=== PATIENT | male | born 1975 | race Caucasian/White ===

== ENCOUNTER 2020-01-30 09:30 | Inpatient (IN) ==
[2020-01-30] MEDS ORDERED: POLYETHYLENE GLYCOL 3350 17 GM PACKET PO PRN (10:16)
[2020-01-30] MEDS ORDERED: BISACODYL 10 MG SUPP.RECT PR PRN (10:16)
[2020-01-30] MEDS ORDERED: POTASSIUM CHLORIDE 20 MEQ PACKET PO PRN (10:16)
[2020-01-30] MEDS ORDERED: ACETAMINOPHEN 650 MG/65 ML BOTTLE IV PRN (10:16)
[2020-01-30] MEDS ORDERED: hydrALAZINE 20 MG/ML VIAL IV PRN (10:16)
[2020-01-30] MEDS ORDERED: METOPROLOL TARTRATE 5 MG/5 ML VIAL IV PRN (10:16)
[2020-01-30] MEDS ORDERED: ONDANSETRON 4 MG ODT TABLET SL PRN (10:16)
[2020-01-30] MEDS ORDERED: MAGNESIUM SULFATE 2 GM/50 ML BAG IV PRN (10:16)
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
[2020-01-30] MEDS: 0.9 % SODIUM CHLORIDE 1,000 ML IV SCH ×2 (11:19→21:27)
[2020-01-30] MEDS: NICOTINE 21 MG PATCH TOPICAL SCH (11:20)
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
[2020-01-30] MEDS: DIAZEPAM 10 MG TABLET PO PRN ×8 (12:47→21:16)
[2020-01-30] MEDS ORDERED: GABAPENTIN 300 MG CAPSULE PO SCH (14:00)
[2020-01-30] MEDS: 0.9 % SODIUM CHLORIDE 10 ML SYRINGE IV SCH ×2 (15:38→22:15)
[2020-01-30 16:39] LABS: Hematocrit 41.5 % (40.1-51.0); Hemoglobin 14.3 g/dL (13.7-17.5); Mean Cell Volume 96.5 fL (80.0-100.0); Mean Corpuscular HGB Conc 34.5 g/dL (31.0-36.0); Mean Platelet Volume 10.4 fL (7.4-10.4); Red Cell Distribution Width 12.1 % (11.5-14.5); WBC 3.9 K/mcL (4.50-11.00)
[2020-01-30 16:43] LABS: Platelet Count 132 K/mcL (140-440)
[2020-01-30 16:55] LABS: ALT/SGPT 79 U/l (0-40); AST/SGOT 62 U/l (0-37); Albumin 4.1 gm/dL (3.2-5.2); Albumin/Globulin Ratio 1.6 (1.0-2.3); Alkaline Phosphatase 66 U/L (39-117); Bilirubin,Direct < 0.2 mg/dL (0.0-0.3); Bilirubin,Total 0.4 mg/dL (0.0-1.0); Blood Urea Nitrogen 10 mg/dl (6-20); Calcium 8.6 mg/dl (8.6-10.4); Carbon Dioxide 22 mmol/L (22-30); Chloride 100 mmol/L (96-108); Globulin 2.5 gm/dL (2.2-3.7); Glomerular Filtration Rate 114; Glucose 110 mg/dL (70-105); Lactate Dehydrogenase 163 U/L (94-250); Triglycerides 96 mg/dl (<150); Uric Acid 4.5 mg/dL (2.5-8.0)
[2020-01-30 16:57] LABS: Phosphorous 2.2 mg/dL (2.7-4.5)
[2020-01-30 17:21] LABS: Band Neutrophils % 1 % (0-10); Basophils % (Manual) 3 % (0-2); Eosinophils % (Manual) 6 % (0-7); Lymphocytes % 33 % (15-49); Monocytes % (Manual) 12 % (1-12); Platelet Estimate DECREASED (NORMAL); RBC Morphology NORMAL (NORMAL); Segmented Neutrophils % 45 % (38-78)
[2020-01-30] MEDS: ONDANSETRON 4 MG/2 ML VIAL IV PRN (17:22)
[2020-01-30] MEDS: ACETAMINOPHEN 325 MG TABLET PO PRN (18:13)
[2020-01-30] MEDS ORDERED: PANTOPRAZOLE 40 MG TABLET PO ONE (18:18)
[2020-01-30] MEDS: HEPARIN 5,000 UNIT/ML VIAL SQ SCH (21:14)
[2020-01-30] MEDS: CYANOCOBALAMIN (VITAMIN B-12) 500 MCG TABLET PO SCH (21:15)
[2020-01-30] MEDS: levETIRAcetam 500 MG TABLET PO SCH (21:15)
[2020-01-30] MEDS: DOCUSATE SODIUM 100 MG CAPSULE PO SCH (21:15)
[2020-01-30] MEDS: SENNOSIDES/DOCUSATE SODIUM 1 TAB TABLET PO SCH (21:15)
[2020-01-30] MEDS: GABAPENTIN 400 MG CAPSULE PO SCH (21:15)
[2020-01-30] MEDS: MIRTAZAPINE 15 MG TABLET PO SCH (21:16)
[2020-01-30] MEDS: MELATONIN 3 MG TABLET PO PRN (21:16)
[2020-01-31] MEDS: 0.9 % SODIUM CHLORIDE 10 ML SYRINGE IV SCH ×3 (04:27→22:02)
[2020-01-31] MEDS: 0.9 % SODIUM CHLORIDE 1,000 ML IV SCH ×2 (05:36→15:43)
[2020-01-31 07:29] LABS: Hematocrit 44.5 % (40.1-51.0); Hemoglobin 15.1 g/dL (13.7-17.5); Mean Cell Volume 97.8 fL (80.0-100.0); Mean Corpuscular HGB Conc 33.9 g/dL (31.0-36.0); Platelet Count 123 K/mcL (140-440); RBC 4.55 M/mcL (4.63-6.08); Red Cell Distribution Width 11.9 % (11.5-14.5); WBC 3.9 K/mcL (4.50-11.00)
[2020-01-31 07:51] LABS: ALT/SGPT 74 U/l (0-40); AST/SGOT 56 U/l (0-37); Albumin/Globulin Ratio 1.6 (1.0-2.3); Alkaline Phosphatase 63 U/L (39-117); Bilirubin,Direct < 0.2 mg/dL (0.0-0.3); Bilirubin,Total 0.7 mg/dL (0.0-1.0); Blood Urea Nitrogen 10 mg/dl (6-20); Calcium 9.5 mg/dl (8.6-10.4); Carbon Dioxide 26 mmol/L (22-30); Chloride 105 mmol/L (96-108); Globulin 2.5 gm/dL (2.2-3.7); Glomerular Filtration Rate 108; Glucose 94 mg/dL (70-105); Lactate Dehydrogenase 153 U/L (94-250); Phosphorous 2.6 mg/dL (2.7-4.5); Triglycerides 90 mg/dl (<150); Uric Acid 3.6 mg/dL (2.5-8.0)
[2020-01-31] MEDS: GABAPENTIN 400 MG CAPSULE PO SCH ×4 (08:26→22:01)
[2020-01-31] MEDS: DOCUSATE SODIUM 100 MG CAPSULE PO SCH ×2 (08:27→22:02)
[2020-01-31] MEDS: CYANOCOBALAMIN (VITAMIN B-12) 500 MCG TABLET PO SCH ×2 (08:28→22:01)
[2020-01-31] MEDS: THIAMINE 100 MG TABLET PO SCH (08:28)
[2020-01-31] MEDS: FOLIC ACID 1 MG TABLET PO SCH (08:28)
[2020-01-31] MEDS: MULTIVIT,THER IRON,CA,FA & MIN 1 TABLET PO SCH (08:28)
[2020-01-31] MEDS: levETIRAcetam 500 MG TABLET PO SCH ×2 (08:29→22:01)
[2020-01-31] MEDS: HEPARIN 5,000 UNIT/ML VIAL SQ SCH ×2 (08:30→22:00)
[2020-01-31 08:38] LABS: Prothrombin Time 13.3 sec (11.9-14.5)
[2020-01-31] MEDS: NICOTINE 21 MG PATCH TOPICAL SCH (09:15)
[2020-01-31 10:53] LABS: Band Neutrophils % 1 % (0-10); Eosinophils % (Manual) 7 % (0-7); Lymphocytes % 35 % (15-49); Monocytes % (Manual) 7 % (1-12); Platelet Estimate DECREASED (NORMAL); RBC Morphology NORMAL (NORMAL); Segmented Neutrophils % 50 % (38-78)
[2020-01-31] MEDS: DIAZEPAM 10 MG TABLET PO PRN ×5 (11:36→22:01)
[2020-01-31] MEDS: ACETAMINOPHEN 325 MG TABLET PO PRN ×2 (12:34→16:55)
--- NOTE | 2020-01-31 12:34 | Internal Med Progress Note ---
Medical - PN: Subj Patient information: Note initiated : 01/31/20 at 12:31 pm Service Date, if different from initiated Date: [] Patient: Ole Clements 44 y/o M admitted on 01/30/20 for detox. Chief Complaint: alcohol withdrawal. Patient has been undergoing treatment for active alcohol withdrawal. Denies auditory, visual, tactile hallucinations. Complains of b/l U.E. tremor, anxiety, cravings for alcohol, body aches. Denies chest pain, SOB. Has been able to fall asleep last night. Complains of abdominal pain, mild. - Constitutional Vitals: Vital Signs Temp Pulse Resp BP Pulse Ox 98.5 F 75 26 H 129/90 93 01/31/20 11:37 01/31/20 11:37 01/31/20 11:37 01/31/20 11:37 01/31/20 11:37 Period Temp Pulse Resp BP Sys/Verduzco Pulse Ox Last 24 Hr 97.8 F-98.8 F 69-140 14-26 109-129/57-90 93-96 Intake and Output 01/30/20 01/31/20 01/31/20 21:59 05:59 13:59 Intake Total 2160 915 Output Total 275 1100 600 Balance 1885 -185 -600 Weight 186 lb Intake & Output: Intake & Output 01/30/20 01/31/20 01/31/20 21:59 05:59 13:59 Intake Total 2160 915 Output Total 275 1100 600 Balance 1885 -185 -600 Weight 186 lb Intake: IV 1000 815 Sodium Chloride 0.9% 1,000 ml @ 1000 815 100 mls/hr IV .Q10H [facility] Rx#: [id number] Oral 1160 100 Output: Void Amount 275 1100 600 Other: Urine Appearance Clear Clear Urine Color Light Doimnga Pale Stool Consistency Loose # Voids 2 # Bowel Movements 2 General appearance: average body habitus, cooperative, mild distress - Head Head exam: Present: atraumatic - Eye Eye exam: Present: PERRL. Absent: nystagmus, scleral icterus Pupils: Present: PERRL - Respiratory Respiratory exam: Present: CTAB. Absent: rales, rhonchi, wheezes - Cardiovascular Cardiovascular exam: Present: normal rate and rhythm - GI/Abdominal GI/Abdominal exam: Present: normal bowel sounds, soft, tenderness (mild diffuse). Absent: mass, organomegaly, rebound - Extremities Exam Extremities exam: Present: full ROM, normal inspection. Absent: calf tenderness, pedal edema, tenderness, Brittney's sign - Neurological Exam Neurological exam: Present: alert, CN II-XII intact, normal gait, oriented X3. Absent: abnormal gait - Psychiatric Psychiatric exam: Present: agitated, anxious. Absent: homicidal ideation, manic, suicidal ideation Medical - PN: Obj Da - Labs CBC & Chem 7: 01/31/20 06:22 01/31/20 06:21 Labs: Abnormal Lab Results 01/31/20 01/31/20 01/30/20 06:22 06:21 16:05 WBC 3.9 L RBC 4.55 L Plt Count 123 L MPV 11.0 H Basophils % (Manual) Platelet Estimate Decreased A Glucose 110 H Phosphorus 2.6 L 2.2 L GGT 260 H 242 H AST 56 H 62 H ALT 74 H 79 H 01/30/20 16:05 WBC 3.9 L RBC 4.30 L Plt Count 132 L MPV Basophils % (Manual) 3 H Platelet Estimate Decreased A Glucose Phosphorus GGT AST ALT Meds: Medications Acetaminophen (Tylenol) 650 mg PO Q4-6HP PRN; Protocol PRN Reason: Per Pain Protocol/Fever > 101 Last Admin: 01/30/20 18:13 Dose: 650 mg Documented by: Baclofen (Lioresal) 10 mg PO TID [facility] Bisacodyl (Dulcolax) 10 mg MT Q2-3DAYS PRN PRN Reason: Constipation Cyanocobalamin (Vitamin B-12) 1,000 mcg PO BID [facility] Stop: 02/04/20 09:01 Last Admin: 01/31/20 08:28 Dose: 1,000 mcg Documented by: Diazepam (Valium) 10 mg PO Q1HP PRN PRN Reason: Anxiety/Agitation Last Admin: 01/31/20 11:36 Dose: 10 mg Documented by: Docusate Sodium (Colace) 100 mg PO BID [facility] Last Admin: 01/31/20 08:27 Dose: Not Given Documented by: Folic Acid (Folic Acid) 1 mg PO DAILY [facility] Last Admin: 01/31/20 08:28 Dose: 1 mg Documented by: Gabapentin (Neurontin) 400 mg PO QID [facility] Last Admin: 01/31/20 08:26 Dose: 400 mg Documented by: Heparin Sodium (Porcine) (Heparin) 5,000 unit SQ Q12 [facility] Last Admin: 01/31/20 08:30 Dose: 5,000 unit Documented by: Hydralazine HCl (Apresoline) 10 mg IV Q4-6HP PRN PRN Reason: Hypertension Sodium Chloride (Sodium Chloride 0.9%) 1,000 mls @ 100 mls/hr IV .Q10H [facility] Last Admin: 01/31/20 05:36 Dose: 100 mls/hr Documented by: Acetaminophen (Ofirmev) 650 mg in 65 mls @ 130 mls/hr IV Q6HP PRN; Protocol PRN Reason: Per Pain Protocol/Fever > 101 Magnesium Sulfate (Magnesium Sulfate) 2 gm in 50 mls @ 50 mls/hr IV UD PRN PRN Reason: MG = or < 1.7 Iron Carb/Multivit/[place]/Folic Acid (Multivitamin W/Minerals) 1 tab PO DAILY [facility] Last Admin: 01/31/20 08:28 Dose: 1 tab Documented by: Levetiracetam (Keppra) 2,000 mg PO BID [facility] Last Admin: 01/31/20 08:29 Dose: 2,000 mg Documented by: Melatonin (Melatonin 3mg Tablet) 3 mg PO HSP PRN PRN Reason: Insomnia Last Admin: 01/30/20 21:16 Dose: 3 mg Documented by: Metoprolol Tartrate (Lopressor) 5 mg IV Q5M PRN PRN Reason: Heart Rate > 140 bpm Mirtazapine (Remeron) 15 mg PO HS [facility] Last Admin: 01/30/20 21:16 Dose: 15 mg Documented by: Nicotine (Nicoderm) 21 mg TOPICAL DAILY@1000 [facility] Last Admin: 01/31/20 09:15 Dose: 21 mg Documented by: Ondansetron HCl (Zofran Odt) 4 mg SL Q4-6HP PRN; Protocol PRN Reason: Nausea And Vomiting Ondansetron HCl (Zofran) 4 mg IV Q4-6HP PRN; Protocol PRN Reason: Nausea And Vomiting Last Admin: 01/30/20 17:22 Dose: 4 mg Documented by: Polyethylene Glycol (Miralax) 17 gm PO DAILYP PRN PRN Reason: Constipation Potassium Chloride (Klor-Con) 40 meq PO DAILYP PRN PRN Reason: K+ < 3.5 Senna/Docusate Sodium (Senna Plus Tablet) 1 tab PO HS [facility] Last Admin: 01/30/20 21:15 Dose: 1 tab Documented by: Sodium Chloride (Saline Flush) 10 ml IV Q8 [facility] Last Admin: 01/31/20 04:27 Dose: Not Given Documented by: Thiamine HCl (Vitamin B1) 100 mg PO DAILY [facility] Last Admin: 01/31/20 08:28 Dose: 100 mg Documented by: Medical - PN: A/P - Time Spent With Patient Total time spent is greater than 50% in coordination of care (as documented) at patient's floor/unit and/or counseling patient: 15 - 24 minutes (1) Cannabis use disorder, mild, abuse Status: Acute Current Visit: Yes (2) Severe alcohol use disorder Status: Acute Current Visit: Yes (3) Alcohol withdrawal syndrome Status: Acute Current Visit: No (4) Seizures Status: Acute Current Visit: No (5) Tobacco use disorder, continuous Status: Acute Current Visit: Yes - Narrative A/P Narrative: Patient is in active alcohol withdrawal. He has received 80mg of Valium to date. CIWA score at bedside is 5. Continue close monitoring and PRN CIWA treatment with Valium. obtain lipase and amylase; B12, folate given chronic alcohol use Start patient on Baclofen. Medical - PN: Qual - VTE Deep Vein Thrombosis/Pulmonary Embolism Present on Admission: No
--- NOTE | 2020-01-31 13:41 | Internal Med Progress Note ---
Medical - PN: Subj Patient information: Note initiated : 01/31/20 at 1:39 pm Service Date, if different from initiated Date: [] Patient: Ole Clements 44 y/o M admitted on 01/30/20 for detox. Chief Complaint: [] Interval history: Mr. Clements is a 44 year old M with a long history of alcohol dependence who presents today for voluntary admission for alcohol detox rehab program. On a regular routine he drinks up to 15 beers a day. Prior to presentation he had a beer. He carries a history of seizure disorder and currently on Keppra and gabapentin. He last had a seizure 2 days ago. He was evaluated for alcohol detox program at the [facility] and and presents today for elective admission. At the time evaluation patient is slightly anxious but cooperative. He is able to answer most questions. He denies headache photophobia, chest pain pain endorses to anxiety tremors but denies hallucinations. Denies abdominal pain, diarrhea, dysuria. 01/30-patient currently undergoing alcohol withdrawal per protocol. No overnight fever chills or hallucination. Drowsy this morning. Tolerating diet. Able to take antiepileptics. On continuous neurochecks/telemetry monitoring. Stable vitals and hemodynamics. - Constitutional Vitals: Vital Signs Temp Pulse Resp BP Pulse Ox 98.5 F 75 26 H 129/90 93 01/31/20 11:37 01/31/20 11:37 01/31/20 11:37 01/31/20 11:37 01/31/20 11:37 Period Temp Pulse Resp BP Sys/Verduzco Pulse Ox Last 24 Hr 97.8 F-98.8 F 69-140 14-26 109-129/57-90 93-96 Intake and Output 01/30/20 01/31/20 01/31/20 21:59 05:59 13:59 Intake Total 2160 915 240 Output Total 275 1100 600 Balance 1885 -185 -360 Weight 186 lb Intake & Output: Intake & Output 01/30/20 01/31/20 01/31/20 21:59 05:59 13:59 Intake Total 2160 915 240 Output Total 275 1100 600 Balance 1885 -185 -360 Weight 186 lb Intake: IV 1000 815 Sodium Chloride 0.9% 1,000 ml @ 1000 815 100 mls/hr IV .Q10H [facility] Rx#: [id number] Oral 1160 100 240 Output: Void Amount 275 1100 600 Other: Meal Lunch Percent of Meal Consumed 75% Feeding Ability Assist with Tray Set Up Urine Appearance Clear Clear Urine Color Light [place] Pale Stool Consistency Loose # Voids 2 # Bowel Movements 2 General appearance: no acute distress Exam: Drowsy Minimal anxiety Minimal tremor Nonlabored breathing Medical - PN: Obj Da - Labs CBC & Chem 7: 01/31/20 06:22 01/31/20 06:21 Labs: Abnormal Lab Results 01/31/20 01/31/20 01/30/20 06:22 06:21 16:05 WBC 3.9 L RBC 4.55 L Plt Count 123 L MPV 11.0 H Basophils % (Manual) Platelet Estimate Decreased A Glucose 110 H Phosphorus 2.6 L 2.2 L GGT 260 H 242 H AST 56 H 62 H ALT 74 H 79 H 01/30/20 16:05 WBC 3.9 L RBC 4.30 L Plt Count 132 L MPV Basophils % (Manual) 3 H Platelet Estimate Decreased A Glucose Phosphorus GGT AST ALT Meds: Medications Acetaminophen (Tylenol) 650 mg PO Q4-6HP PRN; Protocol PRN Reason: Per Pain Protocol/Fever > 101 Last Admin: 01/31/20 12:34 Dose: 650 mg Documented by: Baclofen (Lioresal) 10 mg PO TID [facility] Bisacodyl (Dulcolax) 10 mg [place] Q2-3DAYS PRN PRN Reason: Constipation Cyanocobalamin (Vitamin B-12) 1,000 mcg PO BID [facility] Stop: 02/04/20 09:01 Last Admin: 01/31/20 08:28 Dose: 1,000 mcg Documented by: Diazepam (Valium) 10 mg PO Q1HP PRN PRN Reason: Anxiety/Agitation Last Admin: 01/31/20 12:34 Dose: 10 mg Documented by: Docusate Sodium (Colace) 100 mg PO BID [facility] Last Admin: 01/31/20 08:27 Dose: Not Given Documented by: Folic Acid (Folic Acid) 1 mg PO DAILY [facility] Last Admin: 01/31/20 08:28 Dose: 1 mg Documented by: Gabapentin (Neurontin) 400 mg PO QID [facility] Last Admin: 01/31/20 12:34 Dose: 400 mg Documented by: Heparin Sodium (Porcine) (Heparin) 5,000 unit SQ Q12 [facility] Last Admin: 01/31/20 08:30 Dose: 5,000 unit Documented by: Hydralazine HCl (Apresoline) 10 mg IV Q4-6HP PRN PRN Reason: Hypertension Sodium Chloride (Sodium Chloride 0.9%) 1,000 mls @ 100 mls/hr IV .Q10H [facility] Last Admin: 01/31/20 05:36 Dose: 100 mls/hr Documented by: Acetaminophen (Ofirmev) 650 mg in 65 mls @ 130 mls/hr IV Q6HP PRN; Protocol PRN Reason: Per Pain Protocol/Fever > 101 Magnesium Sulfate (Magnesium Sulfate) 2 gm in 50 mls @ 50 mls/hr IV UD PRN PRN Reason: MG = or < 1.7 Iron Carb/Multivit/Residential Director/Folic Acid (Multivitamin W/Minerals) 1 tab PO DAILY [facility] Last Admin: 01/31/20 08:28 Dose: 1 tab Documented by: Levetiracetam (Keppra) 2,000 mg PO BID [facility] Last Admin: 01/31/20 08:29 Dose: 2,000 mg Documented by: Melatonin (Melatonin 3mg Tablet) 3 mg PO HSP PRN PRN Reason: Insomnia Last Admin: 01/30/20 21:16 Dose: 3 mg Documented by: Metoprolol Tartrate (Lopressor) 5 mg IV Q5M PRN PRN Reason: Heart Rate > 140 bpm Mirtazapine (Remeron) 15 mg PO HS [facility] Last Admin: 01/30/20 21:16 Dose: 15 mg Documented by: Nicotine (Nicoderm) 21 mg TOPICAL DAILY@1000 [facility] Last Admin: 01/31/20 09:15 Dose: 21 mg Documented by: Ondansetron HCl (Zofran Odt) 4 mg SL Q4-6HP PRN; Protocol PRN Reason: Nausea And Vomiting Ondansetron HCl (Zofran) 4 mg IV Q4-6HP PRN; Protocol PRN Reason: Nausea And Vomiting Last Admin: 01/30/20 17:22 Dose: 4 mg Documented by: Polyethylene Glycol (Miralax) 17 gm PO DAILYP PRN PRN Reason: Constipation Potassium Chloride (Klor-Con) 40 meq PO DAILYP PRN PRN Reason: K+ < 3.5 Senna/Docusate Sodium (Senna Plus Tablet) 1 tab PO HS [facility] Last Admin: 01/30/20 21:15 Dose: 1 tab Documented by: Sodium Chloride (Saline Flush) 10 ml IV Q8 [facility] Last Admin: 01/31/20 13:17 Dose: Not Given Documented by: Thiamine HCl (Vitamin B1) 100 mg PO DAILY [facility] Last Admin: 01/31/20 08:28 Dose: 100 mg Documented by: Medical - PN: A/P - Time Spent With Patient Total time spent is greater than 50% in coordination of care (as documented) at patient's floor/unit and/or counseling patient: 15 - 24 minutes (1) Severe alcohol use disorder Status: Acute Assessment and plan: * Severe alcohol use disorder-ongoing treatment for alcohol withdrawal symptoms. Renal health physician on board. High risk seizures. Continuing close monitoring. No arrhythmias on telemetry. Continue multivitamin/crystalloids * History of seizures disorder on Keppra/gabapentin-last seizure 2 days prior to admission. Continue seizure watch * History of tobacco abuse-continue nicotine patch * Full code * Prophylax Heparin Plan * Continue seizure watch * Withdrawal symptom management. Behavioral health physician * Nutrition supplements/dietary consult/crystalloids * Nicotine patch Current Visit: Yes Medical - PN: Qual - VTE Deep Vein Thrombosis/Pulmonary Embolism Present on Admission: No
[2020-01-31] MEDS: BACLOFEN 10 MG TABLET PO SCH ×2 (15:08→22:01)
[2020-01-31] MEDS: ONDANSETRON 4 MG/2 ML VIAL IV PRN (22:00)
[2020-01-31] MEDS: MIRTAZAPINE 15 MG TABLET PO SCH (22:02)
[2020-01-31] MEDS: MELATONIN 3 MG TABLET PO PRN (22:02)
[2020-01-31] MEDS: SENNOSIDES/DOCUSATE SODIUM 1 TAB TABLET PO SCH (22:02)
[2020-02-01] MEDS: 0.9 % SODIUM CHLORIDE 1,000 ML IV SCH ×4 (00:23→22:19)
[2020-02-01] MEDS: 0.9 % SODIUM CHLORIDE 10 ML SYRINGE IV SCH ×3 (05:21→20:08)
[2020-02-01 07:33] LABS: Hematocrit 45.2 % (40.1-51.0); Hemoglobin 15.3 g/dL (13.7-17.5); Mean Cell Volume 98.5 fL (80.0-100.0); Mean Corpuscular HGB Conc 33.8 g/dL (31.0-36.0); Mean Platelet Volume 10.9 fL (7.4-10.4); Platelet Count 115 K/mcL (140-440); RBC 4.59 M/mcL (4.63-6.08); Red Cell Distribution Width 11.9 % (11.5-14.5); WBC 3.9 K/mcL (4.50-11.00)
[2020-02-01 08:06] LABS: ALT/SGPT 68 U/l (0-40); AST/SGOT 47 U/l (0-37); Albumin 3.9 gm/dL (3.2-5.2); Albumin/Globulin Ratio 1.5 (1.0-2.3); Alkaline Phosphatase 61 U/L (39-117); Amylase 37 U/L (28-100); Bilirubin,Direct < 0.2 mg/dL (0.0-0.3); Bilirubin,Total 0.6 mg/dL (0.0-1.0); Blood Urea Nitrogen 6 mg/dl (6-20); Calcium 9.3 mg/dl (8.6-10.4); Carbon Dioxide 26 mmol/L (22-30); Chloride 103 mmol/L (96-108); Globulin 2.6 gm/dL (2.2-3.7); Glomerular Filtration Rate 108; Glucose 103 mg/dL (70-105); Lactate Dehydrogenase 153 U/L (94-250); Phosphorous 2.5 mg/dL (2.7-4.5); Thyroid Stimulating Hormone 2.54 uIU/ml (0.27-5.01); Triglycerides 139 mg/dl (<150)
[2020-02-01] MEDS: HEPARIN 5,000 UNIT/ML VIAL SQ SCH ×2 (08:24→20:05)
[2020-02-01] MEDS: MULTIVIT,THER IRON,CA,FA & MIN 1 TABLET PO SCH (08:25)
[2020-02-01] MEDS: CYANOCOBALAMIN (VITAMIN B-12) 500 MCG TABLET PO SCH ×2 (08:25→20:03)
[2020-02-01] MEDS: BACLOFEN 10 MG TABLET PO SCH ×3 (08:25→20:03)
[2020-02-01] MEDS: THIAMINE 100 MG TABLET PO SCH (08:25)
[2020-02-01] MEDS: GABAPENTIN 400 MG CAPSULE PO SCH ×4 (08:25→20:03)
[2020-02-01] MEDS: FOLIC ACID 1 MG TABLET PO SCH (08:25)
[2020-02-01] MEDS: levETIRAcetam 500 MG TABLET PO SCH ×2 (08:27→19:26)
[2020-02-01] MEDS: NICOTINE 21 MG PATCH TOPICAL SCH (08:27)
[2020-02-01 08:47] LABS: Band Neutrophils % 1 % (0-10); Basophils % (Manual) 1 % (0-2); Eosinophils % (Manual) 8 % (0-7); Lymphocytes % 29 % (15-49); Monocytes % (Manual) 11 % (1-12); Platelet Estimate DECREASED (NORMAL); RBC Morphology NORMAL (NORMAL); Reactive Lymphocytes 3 % (0-2); Segmented Neutrophils % 47 % (38-78)
[2020-02-01] MEDS: ACETAMINOPHEN 325 MG TABLET PO PRN (08:48)
[2020-02-01] MEDS: DOCUSATE SODIUM 100 MG CAPSULE PO SCH ×2 (08:54→20:05)
--- NOTE | 2020-02-01 11:09 | Internal Med Progress Note ---
Medical - PN: Subj Patient information: Note initiated : 02/01/20 at 11:06 am Service Date, if different from initiated Date: [] Patient: Ole Clements 44 y/o M admitted on 01/30/20 for detox. Chief Complaint: [] Interval history: Mr. Clements is a 44 year old M with a long history of alcohol dependence who presents today for voluntary admission for alcohol detox rehab program. On a regular routine he drinks up to 15 beers a day. Prior to presentation he had a beer. He carries a history of seizure disorder and currently on Keppra and gabapentin. He last had a seizure 2 days ago. He was evaluated for alcohol detox program at the [facility] and and presents today for elective admission. At the time evaluation patient is slightly anxious but cooperative. He is able to answer most questions. He denies headache photophobia, chest pain pain endorses to anxiety tremors but denies hallucinations. Denies abdominal pain, diarrhea, dysuria. 01/30-patient currently undergoing alcohol withdrawal per protocol. No overnight fever chills or hallucination. Drowsy this morning. Tolerating diet. Able to take antiepileptics. On continuous neurochecks/telemetry monitoring. Stable vitals and hemodynamics. 01/31-patient doing well. Currently on alcohol withdrawal protocol per behavioral health physician. No overnight event including seizure activity. Improved psychomotor agitation. Labs hemodynamic stable. Elevated LFTs consistent with alcoholism. - Constitutional Vitals: Vital Signs Temp Pulse Resp BP Pulse Ox 98.5 F 64 16 117/62 95 02/01/20 08:00 02/01/20 08:00 02/01/20 08:00 02/01/20 08:00 02/01/20 08:00 Period Temp Pulse Resp BP Sys/Verduzco Pulse Ox Last 24 Hr 97.8 F-98.7 F 64-81 16-26 110-135/62-90 93-98 Intake and Output 01/31/20 02/01/20 02/01/20 21:59 05:59 13:59 Intake Total 1500 967 300 Output Total 700 1000 500 Balance 800 -33 -200 Weight 186 lb Intake & Output: Intake & Output 01/31/20 02/01/20 02/01/20 21:59 05:59 13:59 Intake Total 1500 967 300 Output Total 700 1000 500 Balance 800 -33 -200 Weight 186 lb Intake: IV 1000 867 Sodium Chloride 0.9% 1,000 ml @ 1000 867 100 mls/hr IV .Q10H [facility] Rx#: [id number] Oral 500 100 300 Output: Void Amount 700 1000 500 Other: Meal Breakfast Percent of Meal Consumed 75% Feeding Ability Assist with Tray Set Up Urine Appearance Clear Clear Clear Urine Color Pale Pale Dark Yellow Urine Odor Normal Strong Stool Size Moderate Stool Color Brown Stool Consistency Watery # Voids 3 # Bowel Movements 3 General appearance: no acute distress Exam: Resting comfortably Nonlabored breathing No anxiety No agitation Medical - PN: Obj Da - Labs CBC & Chem 7: 02/01/20 05:55 02/01/20 05:55 Labs: Abnormal Lab Results 02/01/20 02/01/20 01/31/20 05:55 05:55 06:22 WBC 3.9 L 3.9 L RBC 4.59 L 4.55 L Plt Count 115 L 123 L MPV 10.9 H 11.0 H Eosinophils % (Manual) 8 H Basophils % (Manual) Reactive Lymphocytes 3 H Platelet Estimate Decreased A Decreased A Glucose Phosphorus 2.5 L GGT 249 H AST 47 H ALT 68 H 01/31/20 01/30/20 01/30/20 06:21 16:05 16:05 WBC 3.9 L RBC 4.30 L Plt Count 132 L MPV Eosinophils % (Manual) Basophils % (Manual) 3 H Reactive Lymphocytes Platelet Estimate Decreased A Glucose 110 H Phosphorus 2.6 L 2.2 L GGT 260 H 242 H AST 56 H 62 H ALT 74 H 79 H Meds: Medications Acetaminophen (Tylenol) 650 mg PO Q4-6HP PRN; Protocol PRN Reason: Per Pain Protocol/Fever > 101 Last Admin: 02/01/20 08:48 Dose: 650 mg Documented by: Baclofen (Lioresal) 10 mg PO TID [facility] Last Admin: 02/01/20 08:25 Dose: 10 mg Documented by: Bisacodyl (Dulcolax) 10 mg [place] Q2-3DAYS PRN PRN Reason: Constipation Cyanocobalamin (Vitamin B-12) 1,000 mcg PO BID [facility] Stop: 02/04/20 09:01 Last Admin: 02/01/20 08:25 Dose: 1,000 mcg Documented by: Diazepam (Valium) 10 mg PO Q1HP PRN PRN Reason: Anxiety/Agitation Last Admin: 01/31/20 22:01 Dose: 10 mg Documented by: Docusate Sodium (Colace) 100 mg PO BID [facility] Last Admin: 02/01/20 08:54 Dose: Not Given Documented by: Folic Acid (Folic Acid) 1 mg PO DAILY [facility] Last Admin: 02/01/20 08:25 Dose: 1 mg Documented by: Gabapentin (Neurontin) 400 mg PO QID [facility] Last Admin: 02/01/20 08:25 Dose: 400 mg Documented by: Heparin Sodium (Porcine) (Heparin) 5,000 unit SQ Q12 [facility] Last Admin: 02/01/20 08:24 Dose: 5,000 unit Documented by: Hydralazine HCl (Apresoline) 10 mg IV Q4-6HP PRN PRN Reason: Hypertension Sodium Chloride (Sodium Chloride 0.9%) 1,000 mls @ 100 mls/hr IV .Q10H [facility] Last Admin: 02/01/20 01:09 Dose: Not Given Documented by: Acetaminophen (Ofirmev) 650 mg in 65 mls @ 130 mls/hr IV Q6HP PRN; Protocol PRN Reason: Per Pain Protocol/Fever > 101 Magnesium Sulfate (Magnesium Sulfate) 2 gm in 50 mls @ 50 mls/hr IV UD PRN PRN Reason: MG = or < 1.7 Iron Carb/Multivit/Heat Pump Installer/Folic Acid (Multivitamin W/Minerals) 1 tab PO DAILY [facility] Last Admin: 02/01/20 08:25 Dose: 1 tab Documented by: Levetiracetam (Keppra) 2,000 mg PO BID [facility] Last Admin: 02/01/20 08:27 Dose: Not Given Documented by: Melatonin (Melatonin 3mg Tablet) 3 mg PO HSP PRN PRN Reason: Insomnia Last Admin: 01/31/20 22:02 Dose: 3 mg Documented by: Metoprolol Tartrate (Lopressor) 5 mg IV Q5M PRN PRN Reason: Heart Rate > 140 bpm Mirtazapine (Remeron) 15 mg PO HS [facility] Last Admin: 01/31/20 22:02 Dose: 15 mg Documented by: Nicotine (Nicoderm) 21 mg TOPICAL DAILY@1000 [facility] Last Admin: 02/01/20 08:27 Dose: 21 mg Documented by: Ondansetron HCl (Zofran Odt) 4 mg SL Q4-6HP PRN; Protocol PRN Reason: Nausea And Vomiting Ondansetron HCl (Zofran) 4 mg IV Q4-6HP PRN; Protocol PRN Reason: Nausea And Vomiting Last Admin: 01/31/20 22:00 Dose: 4 mg Documented by: Polyethylene Glycol (Miralax) 17 gm PO DAILYP PRN PRN Reason: Constipation Potassium Chloride (Klor-Con) 40 meq PO DAILYP PRN PRN Reason: K+ < 3.5 Senna/Docusate Sodium (Senna Plus Tablet) 1 tab PO HS [facility] Last Admin: 01/31/20 22:02 Dose: Not Given Documented by: Sodium Chloride (Saline Flush) 10 ml IV Q8 [facility] Last Admin: 02/01/20 05:21 Dose: Not Given Documented by: Thiamine HCl (Vitamin B1) 100 mg PO DAILY [facility] Last Admin: 02/01/20 08:25 Dose: 100 mg Documented by: Medical - PN: A/P - Time Spent With Patient Total time spent is greater than 50% in coordination of care (as documented) at patient's floor/unit and/or counseling patient: 25 - 35 minutes (1) Severe alcohol use disorder Status: Acute Assessment and plan: * Severe alcohol use disorder-continue treatment for alcohol withdrawal symptoms. Behavioral health physician on board. High risk seizures. Continuing close monitoring. No arrhythmias on telemetry. Continue multivitamin/crystalloids * History of seizures disorder on Keppra/gabapentin-last seizure 2 days prior to admission. Maintain seizure watch * History of tobacco abuse-continue nicotine patch * Full code * Prophylax Heparin Plan * Continue monitoring for withdrawal symptoms * Maintain seizure watch * Nutrition supplements/dietary consult/crystalloids * Nicotine patch Current Visit: Yes Medical - PN: Qual - VTE Deep Vein Thrombosis/Pulmonary Embolism Present on Admission: No
--- NOTE | 2020-02-01 13:38 | Internal Med Progress Note ---
Medical - PN: Subj Patient information: Note initiated : 02/01/20 at 1:36 pm Service Date, if different from initiated Date: [] Patient: Ole Clements 44 y/o M admitted on 01/30/20 for detox. Chief Complaint: alcohol withdrawal Patient states that he feels much improved. Continues to struggle with anxiety and cravings for alcohol. Reports that sleep, tremors have improved. Denies palpitations, seizures, auditory/visual/tactile hallucinations. Patient complains of diffuse abdominal pain and states that he been having diarrhea. Reports that he has been struggling with nausea worse in the mornings, and attributes it to being conditioned to drinking alcohol as soon as he wakes up. - Constitutional Vitals: Vital Signs Temp Pulse Resp BP Pulse Ox 97.9 F 67 16 124/71 97 02/01/20 12:45 02/01/20 12:45 02/01/20 12:45 02/01/20 12:45 02/01/20 12:45 Period Temp Pulse Resp BP Sys/Verduzco Pulse Ox Last 24 Hr 97.8 F-98.7 F 64-81 16-22 109-135/62-89 95-98 Intake and Output 01/31/20 02/01/20 02/01/20 21:59 05:59 13:59 Intake Total 5973 096 8068 Output Total 700 1000 500 Balance 800 -33 1040 Weight 186 lb 186 lb Patient Weight 02/02/20 05:59 Weight 186 lb Intake & Output: Intake & Output 01/31/20 02/01/20 02/01/20 21:59 05:59 13:59 Intake Total 2750 902 8737 Output Total 700 1000 500 Balance 800 -33 1040 Weight 186 lb 186 lb Intake: IV 6560 381 7948 Sodium Chloride 0.9% 1,000 ml @ 3567 496 6794 100 mls/hr IV .Q10H [facility] Rx#: [id number] Oral 500 100 540 Output: Void Amount 700 1000 500 Other: Meal Breakfast Percent of Meal Consumed 100% Feeding Ability Assist with Tray Set Up Urine Appearance Clear Clear Clear Urine Color Pale Pale Dark Yellow Urine Odor Normal Strong Stool Size Moderate Moderate Stool Color Brown Brown Stool Consistency Watery Liquid # Voids 3 1 # Bowel Movements 3 1 General appearance: cooperative, mild distress - Eye Eye exam: Present: PERRL. Absent: scleral icterus - Respiratory Respiratory exam: Present: normal respiratory exam, CTAB. Absent: rales, respiratory distress, rhonchi, wheezes - Cardiovascular Cardiovascular exam: Present: RRR. Absent: bradycardia - GI/Abdominal GI/Abdominal exam: Present: normal bowel sounds, soft, hyperactive bowel sounds, tenderness. Absent: bruit, guarding, mass - Extremities Exam Extremities exam: Present: full ROM, normal capillary refill. Absent: calf tenderness, joint swelling, pedal edema, Brittney's sign - Neurological Exam Neurological exam: Present: alert, CN II-XII intact, oriented X3 - Psychiatric Psychiatric exam: Present: anxious. Absent: suicidal ideation - Expanded Psychiatric Exam Focused psych exam: Present: psychomotor agitation Medical - PN: Obj Da - Labs CBC & Chem 7: 02/01/20 05:55 02/01/20 05:55 Labs: Abnormal Lab Results 02/01/20 02/01/20 01/31/20 05:55 05:55 06:22 WBC 3.9 L 3.9 L RBC 4.59 L 4.55 L Plt Count 115 L 123 L MPV 10.9 H 11.0 H Eosinophils % (Manual) 8 H Basophils % (Manual) Reactive Lymphocytes 3 H Platelet Estimate Decreased A Decreased A Glucose Phosphorus 2.5 L GGT 249 H AST 47 H ALT 68 H 01/31/20 01/30/20 01/30/20 06:21 16:05 16:05 WBC 3.9 L RBC 4.30 L Plt Count 132 L MPV Eosinophils % (Manual) Basophils % (Manual) 3 H Reactive Lymphocytes Platelet Estimate Decreased A Glucose 110 H Phosphorus 2.6 L 2.2 L GGT 260 H 242 H AST 56 H 62 H ALT 74 H 79 H Meds: Medications Acetaminophen (Tylenol) 650 mg PO Q4-6HP PRN; Protocol PRN Reason: Per Pain Protocol/Fever > 101 Last Admin: 02/01/20 08:48 Dose: 650 mg Documented by: Baclofen (Lioresal) 10 mg PO TID [facility] Last Admin: 02/01/20 08:25 Dose: 10 mg Documented by: Bisacodyl (Dulcolax) 10 mg [place] Q2-3DAYS PRN PRN Reason: Constipation Cyanocobalamin (Vitamin B-12) 1,000 mcg PO BID [facility] Stop: 02/04/20 09:01 Last Admin: 02/01/20 08:25 Dose: 1,000 mcg Documented by: Diazepam (Valium) 10 mg PO Q1HP PRN PRN Reason: Anxiety/Agitation Last Admin: 01/31/20 22:01 Dose: 10 mg Documented by: Docusate Sodium (Colace) 100 mg PO BID [facility] Last Admin: 02/01/20 08:54 Dose: Not Given Documented by: Folic Acid (Folic Acid) 1 mg PO DAILY [facility] Last Admin: 02/01/20 08:25 Dose: 1 mg Documented by: Gabapentin (Neurontin) 400 mg PO QID [facility] Last Admin: 02/01/20 12:31 Dose: 400 mg Documented by: Heparin Sodium (Porcine) (Heparin) 5,000 unit SQ Q12 [facility] Last Admin: 02/01/20 08:24 Dose: 5,000 unit Documented by: Hydralazine HCl (Apresoline) 10 mg IV Q4-6HP PRN PRN Reason: Hypertension Sodium Chloride (Sodium Chloride 0.9%) 1,000 mls @ 100 mls/hr IV .Q10H [facility] Last Admin: 02/01/20 12:19 Dose: 100 mls/hr Documented by: Acetaminophen (Ofirmev) 650 mg in 65 mls @ 130 mls/hr IV Q6HP PRN; Protocol PRN Reason: Per Pain Protocol/Fever > 101 Magnesium Sulfate (Magnesium Sulfate) 2 gm in 50 mls @ 50 mls/hr IV UD PRN PRN Reason: MG = or < 1.7 Iron Carb/Multivit/[place]/Folic Acid (Multivitamin W/Minerals) 1 tab PO DAILY [facility] Last Admin: 02/01/20 08:25 Dose: 1 tab Documented by: Levetiracetam (Keppra) 2,000 mg PO BID [facility] Last Admin: 02/01/20 08:27 Dose: Not Given Documented by: Melatonin (Melatonin 3mg Tablet) 3 mg PO HSP PRN PRN Reason: Insomnia Last Admin: 01/31/20 22:02 Dose: 3 mg Documented by: Metoprolol Tartrate (Lopressor) 5 mg IV Q5M PRN PRN Reason: Heart Rate > 140 bpm Mirtazapine (Remeron) 15 mg PO HS [facility] Last Admin: 01/31/20 22:02 Dose: 15 mg Documented by: Nicotine (Nicoderm) 21 mg TOPICAL DAILY@1000 [facility] Last Admin: 02/01/20 08:27 Dose: 21 mg Documented by: Ondansetron HCl (Zofran Odt) 4 mg SL Q4-6HP PRN; Protocol PRN Reason: Nausea And Vomiting Ondansetron HCl (Zofran) 4 mg IV Q4-6HP PRN; Protocol PRN Reason: Nausea And Vomiting Last Admin: 01/31/20 22:00 Dose: 4 mg Documented by: Polyethylene Glycol (Miralax) 17 gm PO DAILYP PRN PRN Reason: Constipation Potassium Chloride (Klor-Con) 40 meq PO DAILYP PRN PRN Reason: K+ < 3.5 Senna/Docusate Sodium (Senna Plus Tablet) 1 tab PO HS [facility] Last Admin: 01/31/20 22:02 Dose: Not Given Documented by: Sodium Chloride (Saline Flush) 10 ml IV Q8 [facility] Last Admin: 02/01/20 12:47 Dose: Not Given Documented by: Sumatriptan Succinate (Imitrex) 25 mg PO PRN PRN PRN Reason: Migraine Headache Thiamine HCl (Vitamin B1) 100 mg PO DAILY [facility] Last Admin: 02/01/20 08:25 Dose: 100 mg Documented by: Medical - PN: A/P - Time Spent With Patient Total time spent is greater than 50% in coordination of care (as documented) at patient's floor/unit and/or counseling patient: 25 - 35 minutes (1) Cannabis use disorder, mild, abuse Status: Acute Current Visit: Yes (2) Severe alcohol use disorder Status: Acute Current Visit: Yes (3) Alcohol withdrawal syndrome Status: Acute Current Visit: No (4) Seizures Status: Acute Current Visit: No (5) Tobacco use disorder, continuous Status: Acute Current Visit: Yes (6) Abdominal pain Status: Acute Current Visit: Yes - Narrative A/P Narrative: Patient continues to be in active alcohol withdrawal, improving. Has received 130mg of Diazepam. Last dose 22:01 01/30. CIWA 4 at bedside Continue Diazepam prn CIWA Scores Evaluate abdominal pain, c/o constipation and GERD secondary to alcoholism. Continue Protonix. Obtain abdominal [facility] Medical - PN: Qual - VTE Deep Vein Thrombosis/Pulmonary Embolism Present on Admission: No
[2020-02-01] MEDS: MIRTAZAPINE 15 MG TABLET PO SCH (20:02)
[2020-02-01] MEDS: SUMAtriptan SUCCINATE 50 MG TABLET PO PRN ×2 (20:02→22:17)
[2020-02-01] MEDS: SENNOSIDES/DOCUSATE SODIUM 1 TAB TABLET PO SCH (20:05)
[2020-02-01] MEDS: MELATONIN 3 MG TABLET PO PRN (22:10)
[2020-02-02 06:36] LABS: Mean Cell Volume 99.3 fL (80.0-100.0); Mean Corpuscular HGB Conc 33.3 g/dL (31.0-36.0); Platelet Count 121 K/mcL (140-440); RBC 4.53 M/mcL (4.63-6.08); Red Cell Distribution Width 11.8 % (11.5-14.5); WBC 4.2 K/mcL (4.50-11.00)
[2020-02-02] MEDS: 0.9 % SODIUM CHLORIDE 10 ML SYRINGE IV SCH (06:44)
[2020-02-02 07:15] LABS: ALT/SGPT 89 U/l (0-40); AST/SGOT 76 U/l (0-37); Albumin 4.1 gm/dL (3.2-5.2); Albumin/Globulin Ratio 1.5 (1.0-2.3); Alkaline Phosphatase 62 U/L (39-117); Bilirubin,Direct < 0.2 mg/dL (0.0-0.3); Bilirubin,Total 0.6 mg/dL (0.0-1.0); Blood Urea Nitrogen 8 mg/dl (6-20); Calcium 9.4 mg/dl (8.6-10.4); Carbon Dioxide 24 mmol/L (22-30); Chloride 103 mmol/L (96-108); Globulin 2.7 gm/dL (2.2-3.7); Glomerular Filtration Rate 103; Glucose 120 mg/dL (70-105); Lactate Dehydrogenase 181 U/L (94-250); Triglycerides 140 mg/dl (<150); Uric Acid 3.2 mg/dL (2.5-8.0)
[2020-02-02 07:29] LABS: Phosphorous 3.2 mg/dL (2.7-4.5)
--- NOTE | 2020-02-02 08:08 | XRay Report ---
HISTORY: Abdominal pain FINDINGS: The bowel gas pattern is normal. There is no apparent mass or abnormal soft tissue calcification. The bones are normal. IMPRESSION: Normal exam Interpreted and Authenticated by: Pj Figueroa 02/02/20
--- NOTE | 2020-02-02 09:27 | Internal Med Progress Note ---
Medical - PN: Subj Patient information: Note initiated : 02/02/20 at 9:25 am Service Date, if different from initiated Date: [] Patient: Ole Clements 44 y/o M admitted on 01/30/20 for detox. Chief Complaint: alcohol withdrawal Patient reports that he is feeling much better. Denies headache, chest pain, SOB, tremors, auditory/visual/tactile hallucinations. Abdominal pain resolved and patient states he is craving pizza. Denies depression, anxiety. - Constitutional Vitals: Vital Signs Temp Pulse Resp BP Pulse Ox 97.9 F 67 16 121/83 97 02/02/20 08:00 02/02/20 08:00 02/02/20 08:00 02/02/20 08:00 02/02/20 08:00 Period Temp Pulse Resp BP Sys/Verduzco Pulse Ox Last 24 Hr 97.4 F-98.4 F 65-72 16-20 109-127/61-85 95-97 Intake and Output 02/01/20 02/02/20 02/02/20 21:59 05:59 13:59 Intake Total 1300 1979 840 Output Total 1675 2175 425 Balance -375 -195 415 Weight 185 lb Intake & Output: Intake & Output 02/01/20 02/02/20 02/02/20 21:59 05:59 13:59 Intake Total 1300 1979 840 Output Total 1675 2175 425 Balance -375 -195 415 Weight 185 lb Intake: Nourishment/Supplement quantity 240 (ml) IV 1000 Sodium Chloride 0.9% 1,000 ml @ 1000 100 mls/hr IV .Q10H [facility] Rx#: [id number] Oral 900 980 600 Tube Feeding 400 Output: Void Amount 1675 2175 425 Other: Meal Dinner Breakfast Percent of Meal Consumed 50% 90% Feeding Ability Independent Independent Nourishment/Supplement name Ensure Enlive Urine Appearance Clear Clear Clear Urine Color Pale Bright Yellow Dark Yellow Urine Odor Normal Normal Normal Stool Size Moderate Moderate Stool Color Brown Brown Stool Consistency Watery Loose # Bowel Movements 1 1 # of times incontinent of 1 Bowels General appearance: cooperative - Head Head exam: Present: atraumatic, normocephalic - Eye Eye exam: Present: EOMI, PERRL. Absent: nystagmus, scleral icterus - ENT ENT exam: Present: mucous membranes moist, normal oropharynx - Respiratory Respiratory exam: Present: normal respiratory exam. Absent: rales, respiratory distress, rhonchi, wheezes - Cardiovascular Cardiovascular exam: Present: normal rate and rhythm, RRR - GI/Abdominal GI/Abdominal exam: Present: normal bowel sounds, soft. Absent: guarding, mass - Extremities Exam Extremities exam: Present: full ROM. Absent: calf tenderness, joint swelling - Neurological Exam Neurological exam: Present: abnormal gait, CN II-XII intact, oriented X3 - Psychiatric Psychiatric exam: Present: normal affect. Absent: anxious, depressed Medical - PN: Obj Da - Labs CBC & Chem 7: 02/02/20 05:05 02/02/20 05:05 Labs: Abnormal Lab Results 02/02/20 02/02/20 02/01/20 05:05 05:05 05:55 WBC 4.2 L RBC 4.53 L Plt Count 121 L MPV 11.0 H Eosinophils % (Manual) Basophils % (Manual) Reactive Lymphocytes Platelet Estimate Glucose 120 H Phosphorus 2.5 L GGT 247 H 249 H AST 76 H 47 H ALT 89 H 68 H 02/01/20 01/31/20 01/31/20 05:55 06:22 06:21 WBC 3.9 L 3.9 L RBC 4.59 L 4.55 L Plt Count 115 L 123 L MPV 10.9 H 11.0 H Eosinophils % (Manual) 8 H Basophils % (Manual) Reactive Lymphocytes 3 H Platelet Estimate Decreased A Decreased A Glucose Phosphorus 2.6 L GGT 260 H AST 56 H ALT 74 H 01/30/20 01/30/20 16:05 16:05 WBC 3.9 L RBC 4.30 L Plt Count 132 L MPV Eosinophils % (Manual) Basophils % (Manual) 3 H Reactive Lymphocytes Platelet Estimate Decreased A Glucose 110 H Phosphorus 2.2 L GGT 242 H AST 62 H ALT 79 H Meds: Medications Acetaminophen (Tylenol) 650 mg PO Q4-6HP PRN; Protocol PRN Reason: Per Pain Protocol/Fever > 101 Last Admin: 02/01/20 08:48 Dose: 650 mg Documented by: Baclofen (Lioresal) 10 mg PO TID JESSICA Last Admin: 02/01/20 20:03 Dose: 10 mg Documented by: Bisacodyl (Dulcolax) 10 mg MT Q2-3DAYS PRN PRN Reason: Constipation Cyanocobalamin (Vitamin B-12) 1,000 mcg PO BID [facility] Stop: 02/04/20 09:01 Last Admin: 02/01/20 20:03 Dose: 1,000 mcg Documented by: Diazepam (Valium) 10 mg PO Q1HP PRN PRN Reason: Anxiety/Agitation Last Admin: 01/31/20 22:01 Dose: 10 mg Documented by: Docusate Sodium (Colace) 100 mg PO BID [facility] Last Admin: 02/01/20 20:05 Dose: Not Given Documented by: Folic Acid (Folic Acid) 1 mg PO DAILY [facility] Last Admin: 02/01/20 08:25 Dose: 1 mg Documented by: Gabapentin (Neurontin) 400 mg PO QID [facility] Last Admin: 02/01/20 20:03 Dose: 400 mg Documented by: Heparin Sodium (Porcine) (Heparin) 5,000 unit SQ Q12 [facility] Last Admin: 02/01/20 20:05 Dose: 5,000 unit Documented by: Hydralazine HCl (Apresoline) 10 mg IV Q4-6HP PRN PRN Reason: Hypertension Sodium Chloride (Sodium Chloride 0.9%) 1,000 mls @ 100 mls/hr IV .Q10H [facility] Last Admin: 02/01/20 22:19 Dose: 100 mls/hr Documented by: Acetaminophen (Ofirmev) 650 mg in 65 mls @ 130 mls/hr IV Q6HP PRN; Protocol PRN Reason: Per Pain Protocol/Fever > 101 Magnesium Sulfate (Magnesium Sulfate) 2 gm in 50 mls @ 50 mls/hr IV UD PRN PRN Reason: MG = or < 1.7 Iron Carb/Multivit/[place]/Folic Acid (Multivitamin W/Minerals) 1 tab PO DAILY [facility] Last Admin: 02/01/20 08:25 Dose: 1 tab Documented by: Levetiracetam (Keppra) 2,000 mg PO BID [facility] Last Admin: 02/01/20 19:26 Dose: 2,000 mg Documented by: Melatonin (Melatonin 3mg Tablet) 3 mg PO HSP PRN PRN Reason: Insomnia Last Admin: 02/01/20 22:10 Dose: 3 mg Documented by: Metoprolol Tartrate (Lopressor) 5 mg IV Q5M PRN PRN Reason: Heart Rate > 140 bpm Mirtazapine (Remeron) 15 mg PO [facility] Last Admin: 02/01/20 20:02 Dose: 15 mg Documented by: Nicotine (Nicoderm) 21 mg TOPICAL DAILY@1000 [facility] Last Admin: 02/01/20 08:27 Dose: 21 mg Documented by: Ondansetron HCl (Zofran Odt) 4 mg SL Q4-6HP PRN; Protocol PRN Reason: Nausea And Vomiting Ondansetron HCl (Zofran) 4 mg IV Q4-6HP PRN; Protocol PRN Reason: Nausea And Vomiting Last Admin: 01/31/20 22:00 Dose: 4 mg Documented by: Polyethylene Glycol (Miralax) 17 gm PO DAILYP PRN PRN Reason: Constipation Potassium Chloride (Klor-Con) 40 meq PO DAILYP PRN PRN Reason: K+ < 3.5 Senna/Docusate Sodium (Senna Plus Tablet) 1 tab PO [facility] Last Admin: 02/01/20 20:05 Dose: Not Given Documented by: Sodium Chloride (Saline Flush) 10 ml IV Q8 [facility] Last Admin: 02/02/20 06:44 Dose: Not Given Documented by: Sumatriptan Succinate (Imitrex) 25 mg PO PRN PRN PRN Reason: Migraine Headache Last Admin: 02/01/20 22:17 Dose: 25 mg Documented by: Thiamine HCl (Vitamin B1) 100 mg PO DAILY [facility] Last Admin: 02/01/20 08:25 Dose: 100 mg Documented by: Medical - PN: A/P - Time Spent With Patient Total time spent is greater than 50% in coordination of care (as documented) at patient's floor/unit and/or counseling patient: 25 - 35 minutes (1) Cannabis use disorder, mild, abuse Status: Acute Current Visit: Yes (2) Severe alcohol use disorder Status: Acute Current Visit: Yes (3) Alcohol withdrawal syndrome Status: Acute Current Visit: No (4) Seizures Status: Acute Current Visit: No (5) Tobacco use disorder, continuous Status: Acute Current Visit: Yes (6) Abdominal pain Status: Acute Current Visit: Yes (7) Thrombocytopenia Status: Acute Current Visit: Yes - Narrative A/P Narrative: Patient's last dose Valium 01/30. CIWA 0 at bedside. Patient much improved. Spent extensive amount of time counseling patient re disease of addiction and MAT treatment. I will start patient on Naltrexone, discussed risks vs benefits. And continue gabapentin and baclofen post discharge with close follow up in one week. Patient instructed to start AA and get a sponsor and avoid all use of alcohol. Care coordinated . Discussed results of Abdominal X-ray with patient Medical - PN: Qual - VTE Deep Vein Thrombosis/Pulmonary Embolism Present on Admission: No
[2020-02-02] MEDS: CYANOCOBALAMIN (VITAMIN B-12) 500 MCG TABLET PO SCH (09:48)
[2020-02-02] MEDS: MULTIVIT,THER IRON,CA,FA & MIN 1 TABLET PO SCH (09:49)
[2020-02-02] MEDS: BACLOFEN 10 MG TABLET PO SCH (09:49)
[2020-02-02] MEDS: levETIRAcetam 500 MG TABLET PO SCH (09:49)
[2020-02-02] MEDS: DOCUSATE SODIUM 100 MG CAPSULE PO SCH (09:49)
[2020-02-02] MEDS: GABAPENTIN 400 MG CAPSULE PO SCH (09:49)
[2020-02-02] MEDS: HEPARIN 5,000 UNIT/ML VIAL SQ SCH (09:49)
[2020-02-02] MEDS: FOLIC ACID 1 MG TABLET PO SCH (09:49)
[2020-02-02] MEDS: THIAMINE 100 MG TABLET PO SCH (09:49)
[2020-02-02] MEDS: NICOTINE 21 MG PATCH TOPICAL SCH ×2 (09:50→10:33)
[2020-02-02] MEDS: 0.9 % SODIUM CHLORIDE 1,000 ML IV SCH (09:53)
--- NOTE | 2020-02-02 10:20 | Discharge Summary ---
Medical - DS: Prov Patient information: Note initiated : 02/02/20 at 10:18 am Service Date, if different from initiated Date: [] Patient: Ole Clements 44 y/o M admitted on 01/30/20 for detox. Chief Complaint: [] Date of admission: 01/30/20 09:30 Discharge date: 02/02/20 Primary care physician: CANDIDA Kauffman Consults: 01/30/20 11:02 Consult to Physician [CONS] Routine Comment: Consulting Provider: Terri Kruse Reason For Exam: Physician to Consult Medical - DS: Meds - Discharge Medications Active and Home Medications: Home Medications levETIRAcetam [Keppra] 2,000 mg PO BID 06/26/18 [History Confirmed 01/30/20 Last Taken 01/30/20] Medical - DS: Hosp Hospital Course: Discharge diagnosis * Severe alcohol use disorder-clinically resolved with aggressive treatment per protocol. We will follow-up outpatient with [facility] for alcohol detox rehab resources. Discharging in stable state * History of seizures disorder stable on Keppra/gabapentin * History of tobacco abuse-continue nicotine patch Brief hospital course Mr. Clements is a 44 year old M with a long history of alcohol dependence who presents today for voluntary admission for alcohol detox rehab program. On a regular routine he drinks up to 15 beers a day. Prior to presentation he had a beer. He carries a history of seizure disorder and currently on Keppra and gabapentin. He last had a seizure 2 days ago. He was evaluated for alcohol detox program at the [facility] and and presents today for elective admission. At the time evaluation patient is slightly anxious but cooperative. He is able to answer most questions. He denies headache photophobia, chest pain pain endorses to anxiety tremors but denies hallucinations. Denies abdominal pain, diarrhea, dysuria. 01/30-patient currently undergoing alcohol withdrawal per protocol. No overnight fever chills or hallucination. Drowsy this morning. Tolerating diet. Able to take antiepileptics. On continuous neurochecks/telemetry monitoring. Stable vitals and hemodynamics. 01/31-patient doing well. Currently on alcohol withdrawal protocol per [facility] health physician. No overnight event including seizure activity. Improved psychomotor agitation. Labs hemodynamic stable. Elevated LFTs consistent with alcoholism. 02/01-patient doing well. No psychomotor agitation. CIWA scores normal. Discharging as per recommendation of behavioral health physician. No overnight fever chills. Discharge diagnosis: . - Time Spent with Patient Total time spent providing and/or coordinating discharge services: Greater than 30 minutes Medical - DS: Exam - Constitutional Vitals: Vital Signs Temp Pulse Resp BP BP Pulse Ox 02/02/20 08:00 97.9 F 67 16 121/83 97 02/02/20 07:30 67 16 97 02/02/20 04:23 98.1 F 65 16 115/76 96 02/01/20 22:29 98.0 F 68 16 127/83 95 02/01/20 19:11 98.1 F 72 18 126/85 96 02/01/20 16:00 97.4 F 71 20 117/61 95 02/01/20 12:45 97.9 F 67 16 124/71 97 02/01/20 12:00 98.4 F 72 18 109/68 96 Intake and Output 02/01/20 02/02/20 02/02/20 21:59 05:59 13:59 Intake Total 1300 1980 840 Output Total 2787 2835 425 Balance -375 -195 415 Intake: Nourishment/Supplement quantity 240 (ml) IV 1000 Sodium Chloride 0.9% 1,000 ml @ 1000 100 mls/hr IV .Q10H [facility] Rx#: [id number] Oral 900 980 600 Tube Feeding 400 Output: Void Amount 1673 6650 425 Other: Meal Dinner Breakfast Percent of Meal Consumed 50% 90% Feeding Ability Independent Independent Nourishment/Supplement name Ensure Enlive Urine Appearance Clear Clear Clear Urine Color Pale Bright Yellow Dark Yellow Urine Odor Normal Normal Normal Stool Size Moderate Moderate Stool Color Brown Brown Stool Consistency Watery Loose # Bowel Movements 1 1 # of times incontinent of 1 Bowels Weight 185 lb Medical - DS: Data Labs on day of discharge: Labs from last 24 hours 02/02/20 02/02/20 05:05 05:05 WBC 4.2 L RBC 4.53 L Hgb 15.0 Hct 45.0 MCV 99.3 MCH 33.1 MCHC 33.3 RDW 11.8 Plt Count 121 L MPV 11.0 H Total Counted Pending Band Neutrophils % Not Reportable Platelet Estimate Pending RBC Morphology Pending Sodium 140 Potassium 3.9 Chloride 103 Carbon Dioxide 24 Anion Gap 13.0 BUN 8 Creatinine 0.9 GFR Calculation 103 Glucose 120 H Uric Acid 3.2 Calcium 9.4 Phosphorus 3.2 Magnesium 2.0 Total Bilirubin 0.6 Direct Bilirubin < 0.2 GGT 247 H AST 76 H ALT 89 H Alkaline Phosphatase 62 Lactate Dehydrogenase 181 Total Protein 6.8 Albumin 4.1 Globulin 2.7 Albumin/Globulin Ratio 1.5 Triglycerides 140 Medical - DS: A/P - Patient/Caregiver Discharge Instructions Activity: increase activity as tolerated Diet: Regular Diet Additional Instructions: Refrain from alcohol use Follow-up behavioral health clinic as advised - Problem Maintenance (1) Severe alcohol use disorder Status: Acute - Follow up Plan Follow up with: Terri Kruse DO [Physician] - 02/06/20 9:45 am Disposition: Home, Self-Care Care Plan Goals: This discharge packet is provided to you to help keep you informed about your care. We want to ensure you get everything you need when you go home. You will also be receiving a call from us in a few days to follow up with you and see how you are doing since your discharge. This gives us a chance to listen to any concerns you maybe experiencing since you were discharged or any additional ne eds you may have, as well as providing us feedback on your care experience. We strive to always provide excellent care and thank you for your feedback and for choosing [facility]. Prognosis: Fair Rehab Potential: Fair Overall status at discharge: patient is progressing back to baseline Medical - DS: Qual - VTE Deep Vein Thrombosis/Pulmonary Embolism Present on Admission: No
[2020-02-02 10:39] LABS: Basophils % (Manual) 1 % (0-2); Eosinophils % (Manual) 3 % (0-7); Lymphocytes % 36 % (15-49); Monocytes % (Manual) 11 % (1-12); Platelet Estimate DECREASED (NORMAL); RBC Morphology NORMAL (NORMAL); Segmented Neutrophils % 49 % (38-78)
== END 2020-02-02 11:05 | disposition home or self-care (01) | DRG 897 ==
LOC: MEDSUR 09:30
PROVIDERS: ADMIT Internal Medicine; ATTEND Internal Medicine